=== PATIENT | female | born 1955 | race Caucasian/White ===

== ENCOUNTER → 2018-03-30 | Outpatient (CLI) | payer OTHER ==
[2015-09-28 12:48] VITALS: BMI 25.6
[~2018-03-30] MED LIST: IBUP800T37 PO; LISI20TA29 PO; OXYC-373 PO; PERM60CR17 TP; ZOLP-350 PO
--- NOTE | 2018-03-30 15:04 | RADIOLOGY IMAGING REPORT ---
[place] [facility] [place]: JASON EAST : [id number] MR: [id number] V: [id number] EXAM DATE: [id number] ORDERING PHYSICIAN: KIKI SANDERS TECHNOLOGIST: Shyann Guzman PROCEDURE:BILATERAL DIGITAL SCREENING MAMMOGRAM WITH CAD ASSISTED INTERPRETATION & 3D TOMOSYNTHESIS COMPARISON:Prior mammograms 05/11/16, 04/28/16, 02/13/15, 12/19/12. INDICATIONS:SCREENING FINDINGS: Moderately heterogeneous fibroglandular tissue is seen throughout the breasts. The parenchymal pattern has remained stable allowing for difference in mammographic technique & patient positioning. There is no evidence of malignant appearing mass, malignant appearing calcifications or other secondary sign of malignancy in either breast. DIAGNOSTIC CATEGORY 1--NEGATIVE. RECOMMENDATIONS: ROUTINE MAMMOGRAM AND CLINICAL EVALUATION. IMPRESSION: BIRADS 1: Negative. No significant abnormality is seen. Dictated by: Denia Harrington M.D. on 03/30/2018 at 9:30 Transcribed by: SIDRA on 03/30/2018 at 9:52 Approved by: Denia Harrington M.D. on 03/30/2018 at 15:02 [facility]
== END ==
LOC: MAMO 01:50
PROVIDERS: ATTEND Obstetrics & Gynecology
DX: Z12.31 Encounter for screening mammogram for malignant neoplasm of breast (principal)
CPT/HCPCS: 77063; 77067

== ENCOUNTER 2018-06-14 15:01 | Emergency (ER) | payer OTHER ==
[2015-09-28 12:48] VITALS: Wt 70.3 kg
--- NOTE | 2018-06-14 15:15 | ER Report ---
History and Physical Time Seen By MD: 15:16 Hx. of Stated Complaint: CHEST PAIN HPI/ROS CHIEF COMPLAINT: chest pain HISTORY OF PRESENT ILLNESS: Pt started with chest pain on Wednesday night. Pain was almost all night long. Wednesday am it was away. Has had intermittent pain. Pain is substernal and left side of chest. Dull or heavy. no sharpness. no change with breathing. no change with eating. No nausea or sob. no diaphoresis. Pt not sure if it changes with exertion. Pt went to [employer] today and told her co-workers who sent her to the ED. Pt denies cardiac ds for herself. She did have a stress test in 2014 that was okay. Pts dad has a stent. REVIEW OF SYSTEMS: Constitutional: No fever, no chills. Eyes: No discharge. ENT: No sore throat. Cardiovascular: + chest pain, no palpitations. Respiratory: No cough, no shortness of breath. Gastrointestinal: No abdominal pain, no vomiting. Genitourinary: No hematuria. Musculoskeletal: No back pain. Skin: No rashes. Neurological: No headache. Allergies: Coded Allergies: No Known Drug Allergies (Unverified , 06/14/18) Home Meds Active Scripts Ibuprofen (IBUPROFEN) 800 Mg Tablet, 1 TAB PO Q8H, #30 TAB Take with food every 8 hours. Prov:KIKI SANDERS MD 09/28/15 Reported Medications Lisinopril (LISINOPRIL) 20 Mg Tablet, 20 MG PO HS, TAB 09/20/15 Zolpidem Tartrate (AMBIEN) 10 Mg Tablet, 1 TAB PO QHS TAKE ONE TABLET BY MOUTH AT BED TIME 09/22/13 Discontinued Scripts Oxycodone Hcl/Acetaminophen (OXYCODONE-ACETAMINOPHEN 5-325) 1 Each Tablet, 1-2 EACH PO Q4H PRN for PAIN, #30 TAB TAKE 1-2 TABLET NEEDED FOR PAIN - NO CLOSER THAN EVERY 4 HOURS. Prov:KIKI SANDERS MD 09/28/15 Past Medical/Surgical History Pmhx: htn, skin ca on face Pshx: hyster Reviewed Nurses Notes: Yes Old Medical Records Reviewed: Yes Hx Smoking: No Hx Alcohol Use: Yes Constitutional Vital Sign - Last 24 Hours 06/14/18 06/14/18 06/14/18 06/14/18 15:01 15:08 15:12 15:31 Temp 98.0 Pulse 88 79 81 Resp 12 16 B/P (MAP) 138/82 (100) 138/82 Pulse Ox 92 90 O2 Delivery Room Air 06/14/18 06/14/18 06/14/18 06/14/18 15:38 15:48 16:00 16:05 Pulse 71 Resp 14 14 B/P (MAP) 115/74 (88) 111/78 (89) 137/114 (122) Pulse Ox 94 93 06/14/18 06/14/18 06/14/18 06/14/18 16:21 16:30 16:35 16:40 Pulse 67 69 Resp 12 8 B/P (MAP) 115/66 (82) 114/70 (85) Pulse Ox 97 95 06/14/18 06/14/18 06/14/18 06/14/18 17:00 17:10 17:30 17:40 Pulse 74 71 Resp 12 B/P (MAP) 106/54 (71) 112/60 (77) Pulse Ox 96 O2 Delivery Room Air 06/14/18 06/14/18 18:00 18:10 Pulse 69 Resp 13 B/P (MAP) 110/61 (77) Pulse Ox 95 O2 Delivery Room Air Physical Exam General Appearance: The patient is alert, has no immediate need for airway protection and no signs of toxicity. Eyes: Pupils equal and round no pallor or injection, EOMI ENT: no pharyngeal erythema or exudates, Mucous membranes are moist, TM are nl b/l Respiratory: There are no retractions, lungs are clear to auscultation. Cardiovascular: Regular rate and rhythm. pulses are equal and symmetrical Gastrointestinal: Abdomen is soft and non tender, no masses, bowel sounds normal, no guarding, no rigidity or rebound Neurological: Cranial nerves II-XII grossly intact, no sensory or motor loss Skin: Warm and dry, no rashes. Musculoskeletal: Neck is supple non tender, no vertebral tenderness Extremities are nontender, nonswollen and have full range of motion. DIFFERENTIAL DIAGNOSIS: After history and physical exam differential diagnosis was considered for acs, gerd, costochondritis, pleurisy Medical Decision Making Data Points Result Diagram: 06/14/18 1529 06/14/18 1529 Laboratory Hematology Test 06/14/18 15:29 06/14/18 17:55 Red Blood Count 4.53 M/uL (4.17-5.56) Mean Corpuscular Volume 90.3 fL (80.0-96.0) Mean Corpuscular Hemoglobin 31.8 pg (26.0-33.0) Mean Corpuscular Hemoglobin Concent 35.2 g/dL (32.0-36.0) Red Cell Distribution Width 13.1 % (11.5-14.5) Mean Platelet Volume 8.4 fL (7.2-11.1) Neutrophils (%) (Auto) 64.8 % (39.4-72.5) Lymphocytes (%) (Auto) 26.0 % (17.6-49.6) Monocytes (%) (Auto) 7.4 % (4.1-12.4) Eosinophils (%) (Auto) 1.0 % (0.4-6.7) Basophils (%) (Auto) 0.8 % (0.3-1.4) Nucleated RBC Relative Count (auto) 0.0 /100WBC Neutrophils # (Auto) 4.3 K/uL (2.0-7.4) Lymphocytes # (Auto) 1.7 K/uL (1.3-3.6) Monocytes # (Auto) 0.5 K/uL (0.3-1.0) Eosinophils # (Auto) 0.1 K/uL (0.0-0.5) Basophils # (Auto) 0.1 K/uL (0.0-0.1) Nucleated RBC Absolute Count (auto) 0.00 K/uL Sodium Level 140 mmol/L (137-145) Potassium Level 3.6 mmol/L (3.5-5.0) Chloride Level 101 mmol/L (98-107) Carbon Dioxide Level 30 mmol/L (22-31) Blood Urea Nitrogen 22 mg/dl (7-18) Creatinine 1.10 mg/dl (0.52-1.04) Glomerular Filtration Rate Calc 50.2 Random Glucose 119 mg/dl (75-110) Calcium Level 9.5 mg/dl (8.4-10.2) Total Bilirubin 0.3 mg/dl (0.2-1.3) Aspartate Amino Transf (AST/SGOT) 29 U/L (0-35) Alanine Aminotransferase (ALT/SGPT) 34 U/L (0-56) Alkaline Phosphatase 87 U/L (0-126) Total Protein 7.1 g/dl (6.3-8.2) Albumin 4.3 g/dl (3.5-5.0) Troponin I < 0.012 ng/ml Chemistry Test 06/14/18 15:29 06/14/18 17:55 White Blood Count 6.7 k/uL (4.5-11.0) Red Blood Count 4.53 M/uL (4.17-5.56) Hemoglobin 14.4 g/dL (12.0-16.0) Hematocrit 41.0 % (34.0-47.0) Mean Corpuscular Volume 90.3 fL (80.0-96.0) Mean Corpuscular Hemoglobin 31.8 pg (26.0-33.0) Mean Corpuscular Hemoglobin Concent 35.2 g/dL (32.0-36.0) Red Cell Distribution Width 13.1 % (11.5-14.5) Platelet Count 250 K/uL (150-450) Mean Platelet Volume 8.4 fL (7.2-11.1) Neutrophils (%) (Auto) 64.8 % (39.4-72.5) Lymphocytes (%) (Auto) 26.0 % (17.6-49.6) Monocytes (%) (Auto) 7.4 % (4.1-12.4) Eosinophils (%) (Auto) 1.0 % (0.4-6.7) Basophils (%) (Auto) 0.8 % (0.3-1.4) Nucleated RBC Relative Count (auto) 0.0 /100WBC Neutrophils # (Auto) 4.3 K/uL (2.0-7.4) Lymphocytes # (Auto) 1.7 K/uL (1.3-3.6) Monocytes # (Auto) 0.5 K/uL (0.3-1.0) Eosinophils # (Auto) 0.1 K/uL (0.0-0.5) Basophils # (Auto) 0.1 K/uL (0.0-0.1) Nucleated RBC Absolute Count (auto) 0.00 K/uL Glomerular Filtration Rate Calc 50.2 Calcium Level 9.5 mg/dl (8.4-10.2) Total Bilirubin 0.3 mg/dl (0.2-1.3) Aspartate Amino Transf (AST/SGOT) 29 U/L (0-35) Alanine Aminotransferase (ALT/SGPT) 34 U/L (0-56) Alkaline Phosphatase 87 U/L (0-126) Total Protein 7.1 g/dl (6.3-8.2) Albumin 4.3 g/dl (3.5-5.0) Troponin I < 0.012 ng/ml EKG/Imaging EKG Interpretation Nsr @ 76 with no acute changes noted ED Course/Re-evaluation ED Course check labs, ekg 06/14/2018 3:57:00 pm Pts Pressure on arrival was a 3/10. Was given one nitro and went to a /10. Awaiting labs. 06/14/2018 6:47:30 pm Repeat troponin is negative. Decision to Disposition Date: Jun 14, 2018 Decision to Disposition Time: 18:48 Depart Departure Latest Vital Signs Vital Signs Date Time Temp Pulse Resp B/P (MAP) Pulse Ox O2 Delivery O2 Flow Rate FiO2 06/14/18 18:10 69 13 95 Room Air 06/14/18 18:00 110/61 (77) 06/14/18 15:12 98.0 Impression: Primary Impression: Chest pain Condition: Improved Disposition: HOME OR SELF-CARE Referrals: KIM STARKEY DO (PCP) 2 Days Patient Instructions: Chest Pain (GEN) Additional Instructions: Your blood work and electrocardiogram today did not show a heart attack. Although you do not show a heart attack, it does not mean you do not have heart disease. It is very important that you get close follow up. I recommend you obtain a stress test and follow up with a circus performer if needed. Have your family doctor order the stress test. I recommend you take a daily aspirin. Problem Qualifiers Primary Impression: Chest pain Chest pain type: unspecified Qualified Codes: R07.9 - Chest pain, unspecified SABINA LIRA DO Jun 14, 2018 15:15
[2018-06-14] MEDS ORDERED: ASPIRIN 81 MG CHEW PO ONE (15:20)
--- NOTE | 2018-06-14 15:23 | EKG ---
FACILITY: [facility] PATIENT NAME: JASON EAST : [id number] MR: [id number] V: [id number] EXAM DATE: ORDERING PHYSICIAN: SABINA LIRA TECHNOLOGIST: Test Reason : Blood Pressure : / mmHG Vent. Rate : 076 BPM Atrial Rate : 076 BPM P-R Int : 170 ms QRS Dur : 094 ms QT Int : 406 ms P-R-T Axes : 050 022 045 degrees QTc Int : 456 ms Normal sinus rhythm Normal ECG No previous ECGs available Confirmed by Uziel Andrews ([id number]) on 06/14/2018 4:57:54 PM Referred By: Confirmed By:Uziel Zuñiga
[2018-06-14 15:39] LABS: PLATELET COUNT, AUTOMATED 250 K/uL (150-450)
[2018-06-14] MEDS: NITROGLYCERIN 0.4 MG SUBL SL SCH ×2 (15:40→16:13)
[2018-06-14] MEDS ORDERED: NS(*) 0.9% 1000 ML BAG 1,000 ML IV ONE (15:45)
--- NOTE | 2018-06-14 16:24 | RADIOLOGY IMAGING REPORT ---
FACILITY: [facility] [place] PATIENT NAME: Elise Prieto : 1955 MR: [id number] V: [id number] EXAM DATE: ORDERING PHYSICIAN: SABINA LIRA TECHNOLOGIST: Location: [facility] - [place] Patient: Elise Prieto : 1955 Visit/Account:[id number] Date of Sevice: 06/14/2018 CHEST PA AND LAT INDICATION: Chest Pain COMPARISON: 09/03/2015 FINDINGS: Heart size within normal limits. There is no focal infiltrate or lobar consolidation. There is no pneumothorax or pleural effusion. IMPRESSION: 1. No acute cardiopulmonary process. Report Dictated By: Yang Demarco at 06/14/2018 4:19 PM Report E-Signed By: Yang Demarco at 06/14/2018 4:19 PM WSN:[id number]
[2018-06-14 18:33] VITALS: BP 110/61
== END 2018-06-14 19:06 | disposition home or self-care (01) ==
LOC: ER 15:19
DX: R07.9 Chest pain, unspecified (principal); I10 Essential (primary) hypertension; Z90.710 Acquired absence of both cervix and uterus
CPT/HCPCS: 36415; 71046; 84484; 85025; 93005; 99284; J7030; 82040; 82247; 82310; 82374; 82435; 82565; 82947; 84075; 84132; 84155; 84295; 84450; 84460; 84520

== ENCOUNTER → 2018-06-24 | Outpatient (CLI) | payer OTHER ==
[2015-09-28 12:48] VITALS: BMI 25.6
--- NOTE | 2018-06-24 17:34 | RT STRESS TEST REPORT ---
FACILITY: [facility] [place] PATIENT NAME: JASON EAST : [id number] MR: [id number] V: [id number] EXAM DATE: ORDERING PHYSICIAN: JAN SALTER TECHNOLOGIST: Fitz Acquisition Time: 2018-06-24 14:07:32 Total Exercise Time: 00:06:00 Test Indications: Chest pain, HTN Medications: Protocol: BRUCE2 Max HR: 164 BPM 104% of Pred: 157 BPM Max BP: 165/069 mmHG Max Work Load: 7.0 METS She achieved >100% PMHR. She did not experience any chest pain or significant dyspnea. She did report a "mild heaviness" during exercise. No significant ST-T changes were noted. No dysrhythmias were recorded. Recovery was uneventful. IMPRESSION: Low Probability of Ischemia. Somewhat exaggerated heart rate response. Confirmed by YOSSI GARDNER ([id number]) on 06/24/2018 5:33:55 PM Referred By: Overread By: YOSSI GARDNER
== END ==
LOC: RESP 02:26
PROVIDERS: ATTEND Physician Assistant
DX: R07.9 Chest pain, unspecified (principal); I10 Essential (primary) hypertension; E78.5 Hyperlipidemia, unspecified
CPT/HCPCS: 93017

== ENCOUNTER → 2019-03-23 | Outpatient (CLI) | payer OTHER ==
[2015-09-28 12:48] VITALS: BMI 25.6
--- NOTE | 2019-03-27 16:38 | RADIOLOGY IMAGING REPORT ---
FACILITY: [facility] PATIENT NAME: JASON EAST : [id number] MR: [id number] V: [id number] EXAM DATE: [id number] ORDERING PHYSICIAN: JAN SALTER TECHNOLOGIST: Alice Schafer PROCEDURE: BILATERAL DIGITAL SCREENING MAMMOGRAM WITH CAD ASSISTED INTERPRETATION & 3D TOMOSYNTHESIS REASON FOR STUDY: Screening FAMILY HISTORY OF BREAST CANCER: None BREAST PROCEDURES/TREATMENTS: Benign surgical biopsy Left breast COMPARISON: 03/30/18, 05/11/16, 04/28/16, 02/13/15, 12/19/12 VIEWS OBTAINED: Bilateral 2D & 3D full field CC & MLO projections BREAST DENSITY: The breasts are heterogeneously dense which can obscure small masses. MAMMOGRAM FINDINGS: The parenchymal pattern has remained stable allowing for difference in mammographic technique & patient positioning. IMPRESSION: BIRADS 1: Negative. DIAGNOSTIC CATEGORY 1--NEGATIVE. RECOMMENDATIONS: ROUTINE MAMMOGRAM AND CLINICAL EVALUATION. Dictated by: Denia Harrington M.D. on 03/23/2019 at 15:33 Transcribed by: NOEMI on 03/24/2019 at 11:07 Approved by: Logan Meza on 03/27/2019 at 16:35 [facility]
== END ==
LOC: MAMO 14:05
PROVIDERS: ATTEND Physician Assistant
DX: Z12.31 Encounter for screening mammogram for malignant neoplasm of breast (principal)
CPT/HCPCS: 77063; 77067